=== PATIENT | female | born 2000 | race Caucasian/White ===

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

== ENCOUNTER 2021-08-14 06:21 | Inpatient (IN) ==
[2021-08-14] MEDS ORDERED: OXYTOCIN 30 UNITS/500 ML BAG IV PRN ×4 (08:13→21:19)
--- NOTE | 2021-08-14 08:46 | History & Physical Report ---
Date of Service August 14, 2021 Assessment & Plan (1) HSV (herpes simplex virus) anogenital infection: Plan: 21yo at 40w1d GA. Presents for IOL for term . 1. Fetus: Cat 1 2. Labor: Pitocin 3. GBS negative 4. Vitals WNL 5. HSV no s/s of outbreak (2) Post-term , 40-42 weeks of gestation: Admission and Anticipated Discharge Date Admission Date: August 14, 2021 History of Present Illness Primary Care Provider: NO PCP 21yo at 40w1d GA. Presents for IOL for term . complicated by Hx of HSV on Valtrex. Denies HSV symptoms. OB Labs: Blood Type A Positive 01/01/21 Antibody Screen NEGATIVE 01/01/21 Hemoglobin 10.6 g/dL (12.0-16.0) L 05/27/21 Hematocrit 30.9 % (37-47) L 05/27/21 Mean Corpuscular Volume 89.1 fL (80-100) 01/01/21 F Platelet Count 327 K/uL (130-400) 01/01/21 Rubella IgG Antibody Immune (Immune) 01/01/21 Rapid Plasma Reagin Nonreactive (Nonreactive) 01/01/21 Hepatitis B Surface Antigen Neg (Neg) 01/01/21 Hepatitis C Antibody Neg (Neg) 01/01/21 HIV (1&2) Ab and P24 Ag, 4th Gener Neg (Neg) 01/01/21 Glucose 1 Hour 50 gm Load 111 mg/dl (70-130) 05/27/21 OB Optional Labs: Chlamydia trachomatis RNA NOT DETECTED (NOT DETECTED) 01/01/21 Neisseria gonorrhoeae RNA NOT DETECTED (NOT DETECTED) 01/01/21 Thyroid Stimulating Hormone (TSH) 0.718 uIu/ml (0.510-4.910) 09/18/17 Allergies Allergy/AdvReac Type Severity Reaction Status Date / Time No Known Drug Allergies Allergy Verified 08/13/21 11:25 Home Medications Medication Instructions Recorded Confirmed Type valacyclovir 500 mg tablet 500 mg PO DAILY #30 tab 07/25/20 08/14/21 Rx fluoxetine 20 mg capsule (Prozac) 20 mg PO DAILY 12/25/20 08/14/21 History prenat.vits,felton,abw-vzsv-ldiat 1 tab PO DAILY 12/25/20 08/14/21 History ferrous sulfate 325 mg (65 mg 325 mg PO DAILY 08/14/21 08/14/21 History iron) tablet (iron) Patient History Medical History (Updated 08/14/21 @ 08:44 by Wilfrido Rizzo MD) No acute medical problems Surgical History (Updated 02/24/19 @ 15:35 by Casandra Hoff) Hx of adenoidectomy Family History (Updated 02/24/19 @ 15:37 by Casandra Hoff) Mother Blood clot in vein Father No significant family history Social History (Updated 08/14/21 @ 08:07 by Prema De Luna, LUPIS) Smoking Status: Former smoker Hx Alcohol Use: No Hx Substance Use: Yes (marajauna daily) Preferred Language: Urdu Communication Ability: Effective 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 so changes litter. 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 Feels Safe at Home: Yes Childhood Exposure to Second-Hand Smoke: Yes Assistive Devices: None Physical Exam Gastrointestinal (Abdomen): Percussion/Palpation: abdomen soft; abdomen nontender, no guarding and abdomen not rigid Genitourinary: normal external appearance Manual OB Exam: + cervical dilation 2 cm, + cervical effacement 70% and + station -2 OB Exam Monitor Tracing: + external FHT monitor used, + external uterine monitor used, + category I and + normal FHT variability; no early decelerations present, no late decelerations present and no variable decelerations Results & Data ([facility]) Vital Signs (Past 12 Hours) Vital Signs Pulse BP 08/14/21 08:00 75 119/62 Code Status & VTE Plan VTE Prophylaxis Plan VTE Prophylaxis will be ordered: No Coding Level of Care Code None Diagnoses HSV (herpes simplex virus) anogenital infection A60.9 Post-term , 40-42 weeks of gestation O48.0
[2021-08-14 08:59] LABS: Hematocrit (blood only) 31.9 % (37-47); Hemoglobin 10.6 g/dL (12.0-16.0); Mean Corpuscular Hemoglobin 28.9 pg (25-34); Mean Corpuscular Hgb Conc 33.2 g/dL (32-36); Mean Corpuscular Volume 86.9 fL (80-100); Mean Platelet Volume 10.3 fL (7.4-10.4); Platelet Count 238 K/uL (130-400); RDW Coefficient of Variation 13.8 % (11.5-14.5); RDW Standard Deviation 43.4 fL (36.4-46.3); Red Blood Count 3.67 M/uL (4.2-5.4); White Blood Count 9.64 K/uL (4.8-10.8)
[2021-08-14] MEDS: LACTATED RINGER'S 1,000 ML IV PRN ×2 (09:08→13:23)
[2021-08-14] MEDS ORDERED: fentaNYL citrate 100 MCG/2 ML VIAL ONE (13:11)
[2021-08-14] MEDS ORDERED: ePHEDrine sulfate 50 MG/ML AMP ONE (13:11)
[2021-08-14] MEDS ORDERED: BUPIVACAINE 0.25% 30 ML VIAL ONE (13:12)
[2021-08-14] MEDS ORDERED: fentaNYL 2MCG/ML ROPIVACAINE 1.25MG/ML 100 ML BAG EPI ONE (13:12)
[2021-08-14] MEDS ORDERED: SODIUM CHLORIDE 0.9% INJ 10 ML VIAL ONE (13:12)
[2021-08-14] MEDS ORDERED: fentaNYL 2MCG/ML ROPIVACAINE 1.25MG/ML 100 ML BAG EPI PRN (13:29)
[2021-08-14] MEDS ORDERED: NALOXONE HCL 1 MG in SODIUM CHLORIDE 0.9% 1000ML 1,000 ML IV PRN (13:29)
[2021-08-14] MEDS ORDERED: NALOXONE HCL 0.4 MG/1 ML VIAL/CARP IV PRN (13:29)
[2021-08-14] MEDS ORDERED: NALBUPHINE HCL INJ 10 MG/ML AMP IV PRN (13:29)
[2021-08-14] MEDS ORDERED: ePHEDrine sulfate 50 MG/ML AMP IV PRN (13:29)
[2021-08-14] MEDS ORDERED: diphenhydrAMINE 50 MG/ML VIAL IV PRN (13:29)
--- NOTE | 2021-08-14 13:29 | Anesthesiology Consultation ---
Date of Service August 14, 2021 Assessment & Plan (1) Encounter for pre-operative examination: Chart Review Chart Review: Acceptable Risk for Surgery and Patient NOT seen in Pre Admission Testing Consults Requested none History Height/Weight Height: 5 ft 2 in Weight: 84.085 kg Allergies Allergy/AdvReac Type Severity Reaction Status Date / Time No Known Drug Allergies Allergy Verified 08/13/21 11:25 Medications Home Medications Medication Instructions Recorded Confirmed Last Taken valacyclovir 500 mg tablet 500 mg PO DAILY #30 tab 07/25/20 08/14/21 08/13/21 fluoxetine 20 mg capsule (Prozac) 20 mg PO DAILY 12/25/20 08/14/21 08/14/21 08:00 prenat.vits,felton,yaf-vhrm-ybxoz 1 tab PO DAILY 12/25/20 08/14/21 08/13/21 ferrous sulfate 325 mg (65 mg 325 mg PO DAILY 08/14/21 08/14/21 08/12/21 iron) tablet (iron) Active Medications Generic Name Dose Route Start Last Admin Trade Name Pollo PRN Reason Stop Dose Admin Lactated Ringer's 1,000 mls @ 125 mls/hr 08/14/21 08:13 08/14/21 13:23 Lr IV 08/16/21 08:12 999 mls/hr .Q8H PRN Administration L&D Protocol Protocol Oxytocin 30 units in 500 mls @ 8 mls/hr 08/14/21 08:37 08/14/21 10:40 Pitocin IV 08/16/21 08:36 0.48 units/hr .Q24H PRN 8 mls/hr Labor Induction/Augmentation Titration Protocol 0.48 UNITS/HR Past Medical History Medical History No acute medical problems Past Family History Family History Mother Blood clot in vein Father No significant family history Past Surgical History Surgical History Hx of adenoidectomy Social History Smoking Status: Former smoker tobacco type: e-cigarettes Hx Alcohol Use: No Hx Substance Use: Yes (marajauna daily) substance use type: marijuana Physical Exam Vital Signs Last Vital Signs Temp 98.2 F 08/14/21 11:17 Pulse 57 L 08/14/21 12:05 Resp 18 08/14/21 12:40 BP 123/76 08/14/21 12:05 Testing Laboratory Results 08/14/21 08:22
--- NOTE | 2021-08-14 15:54 | Labor Progress Brief Note ---
Date of Service August 14, 2021 Subjective Reason For Note: Routine Evaluation Assessment & Plan (1) Post-term , 40-42 weeks of gestation: Plan: 21yo at 40w1d [place]. Presents for IOL for term . Progressing well 1. Fetus: Cat 1 2. Labor: Pitocin, s/p SROM. 3. GBS negative 4. Vitals WNL Admission and Anticipated Discharge Date Admission Date: August 14, 2021 Physical Exam Genitourinary: Manual OB Exam: + cervical dilation 4 cm, + cervical effacement 80%, + station -1 and + amniotic fluid bloody OB Exam Monitor Tracing: + external FHT monitor used, + external uterine monitor used, + category I and + normal FHT variability; no early decelerations present, no late decelerations present and no variable decelerations Results & Data ([facility]) Vital Signs (Past 12 Hours) Vital Signs Temp Pulse Resp BP Pulse Ox 08/14/21 15:44 55 L 100 08/14/21 15:40 50 L 125/72 08/14/21 15:39 52 L 100 08/14/21 15:34 63 98 08/14/21 15:29 56 L 99 08/14/21 15:24 62 115/66 99 08/14/21 15:19 58 L 99 08/14/21 15:14 54 L 98 08/14/21 15:09 56 L 108/60 98 08/14/21 15:04 53 L 100 08/14/21 14:59 52 L 100 08/14/21 14:55 61 18 129/60 08/14/21 14:54 61 99 08/14/21 14:49 55 L 98 08/14/21 14:44 55 L 98 08/14/21 14:39 53 L 99 08/14/21 14:34 56 L 96 08/14/21 14:29 56 L 98 08/14/21 14:24 53 L 113/59 L 98 08/14/21 14:21 52 L 117/55 L 08/14/21 14:19 55 L 99 08/14/21 14:18 62 18 122/73 08/14/21 14:15 36.5 C 54 L 106/58 L 08/14/21 14:14 56 L 99 08/14/21 14:12 56 L 111/57 L 08/14/21 14:09 55 L 112/55 L 99 08/14/21 14:06 59 L 122/51 L 08/14/21 14:04 61 98 08/14/21 14:03 55 L 18 107/59 L 08/14/21 14:00 54 L 18 105/59 L 08/14/21 13:59 57 L 98 08/14/21 13:57 55 L 18 102/55 L 08/14/21 13:54 56 L 106/57 L 100 08/14/21 13:51 55 L 18 116/62 08/14/21 13:49 58 L 100 08/14/21 13:48 63 18 129/71 08/14/21 13:44 60 100 08/14/21 13:40 18 08/14/21 13:39 77 98 08/14/21 13:10 18 08/14/21 12:40 18 08/14/21 12:10 18 08/14/21 12:05 57 L 123/76 08/14/21 11:40 18 08/14/21 11:17 36.8 C 59 L 18 117/73 08/14/21 10:40 18 08/14/21 10:13 57 L 127/82 08/14/21 10:10 18 08/14/21 09:40 18 08/14/21 09:14 71 18 116/58 L 08/14/21 09:10 18 08/14/21 09:09 18 08/14/21 08:08 36.6 C 18 08/14/21 08:00 75 119/62 Coding Level of Care Code None Diagnoses Post-term , 40-42 weeks of gestation O48.0
--- NOTE | 2021-08-14 15:55 | Labor Progress Brief Note ---
Date of Service August 14, 2021 Subjective presented for evaluation due to questionable decels with inconsistent monitoring due to the heart rate monitor losing connection. questionable variable versus early Deceleration noted. a scalp electrode placed there was noted be recurrent would appear to be variable decelerations. resuscitation measures were initiated and ultimately the oxytocin was discontinued with gradual improvement of heart rate noted. Assessment & Plan (1) Post-term , 40-42 weeks of gestation: Plan: 21yo at 40w1d [place]. Presents for IOL for term . Progressing well 1. Fetus: Cat 2 with gradual improvement to category 1 following discontinuation of Pitocin 2. Labor: d/c Pitocin, s/p SROM. 3. GBS negative 4. Vitals WNL Admission and Anticipated Discharge Date Admission Date: August 14, 2021 Physical Exam Genitourinary: Manual OB Exam: + cervical dilation 6 cm, + cervical effacement 80% and + station -1 OB Exam Monitor Tracing: + external FHT monitor used, + external uterine monitor used, + category II ( see above), + normal FHT variability, + early decelerations present and + variable decelerations Results & Data ([facility]) Vital Signs (Past 12 Hours) Vital Signs Temp Pulse Resp BP Pulse Ox 08/14/21 15:49 53 L 97 08/14/21 15:44 55 L 100 08/14/21 15:40 50 L 125/72 08/14/21 15:39 52 L 100 08/14/21 15:34 63 98 08/14/21 15:29 56 L 99 08/14/21 15:24 62 115/66 99 08/14/21 15:19 58 L 99 08/14/21 15:14 54 L 98 08/14/21 15:09 56 L 108/60 98 08/14/21 15:04 53 L 100 08/14/21 14:59 52 L 100 08/14/21 14:55 61 18 129/60 08/14/21 14:54 61 99 08/14/21 14:49 55 L 98 08/14/21 14:44 55 L 98 08/14/21 14:39 53 L 99 08/14/21 14:34 56 L 96 08/14/21 14:29 56 L 98 08/14/21 14:24 53 L 113/59 L 98 08/14/21 14:21 52 L 117/55 L 08/14/21 14:19 55 L 99 08/14/21 14:18 62 18 122/73 08/14/21 14:15 36.5 C 54 L 106/58 L 08/14/21 14:14 56 L 99 08/14/21 14:12 56 L 111/57 L 08/14/21 14:09 55 L 112/55 L 99 08/14/21 14:06 59 L 122/51 L 08/14/21 14:04 61 98 08/14/21 14:03 55 L 18 107/59 L 08/14/21 14:00 54 L 18 105/59 L 08/14/21 13:59 57 L 98 08/14/21 13:57 55 L 18 102/55 L 08/14/21 13:54 56 L 106/57 L 100 08/14/21 13:51 55 L 18 116/62 08/14/21 13:49 58 L 100 08/14/21 13:48 63 18 129/71 08/14/21 13:44 60 100 08/14/21 13:40 18 08/14/21 13:39 77 98 08/14/21 13:10 18 08/14/21 12:40 18 08/14/21 12:10 18 08/14/21 12:05 57 L 123/76 08/14/21 11:40 18 08/14/21 11:17 36.8 C 59 L 18 117/73 08/14/21 10:40 18 08/14/21 10:13 57 L 127/82 08/14/21 10:10 18 08/14/21 09:40 18 08/14/21 09:14 71 18 116/58 L 08/14/21 09:10 18 08/14/21 09:09 18 08/14/21 08:08 36.6 C 18 08/14/21 08:00 75 119/62 Coding Level of Care Code None Diagnoses Post-term , 40-42 weeks of gestation O48.0
[2021-08-14] MEDS ORDERED: ERYTHROMYCIN OP OINT 1 GM PKT ONE (20:45)
[2021-08-14] MEDS ORDERED: bisacodyL 10 MG SUPP PR PRN (21:19)
[2021-08-14] MEDS ORDERED: BENZOCAINE 20% AER SPR 82.5 GM CAN EXT PRN (21:19)
[2021-08-14] MEDS ORDERED: ACETAMINOPHEN 325 MG TAB PO PRN (21:19)
[2021-08-14] MEDS ORDERED: DIPHTHERIA/TETANUS/PERTUSSIS 0.5 ML SYR/VIAL IM ONE (21:19)
[2021-08-14] MEDS ORDERED: HYDROCORTISONE ACETATE 25 MG SUPP PR PRN (21:19)
[2021-08-14] MEDS ORDERED: ONDANSETRON INJ 2 MG/ML 2 ML VIAL IV PRN (21:27)
--- NOTE | 2021-08-14 21:58 | Anesthesia Procedure Note ---
Date of Service August 14, 2021 Anesthesia Post Epidural Note Vital Signs Vital Signs: Temp Pulse Resp BP Pulse Ox 97.9 F 92 H 18 133/73 87 L 08/14/21 19:05 08/14/21 21:47 08/14/21 21:45 08/14/21 21:47 08/14/21 21:01 Pain Intensity Bilateral Abdomen: Pain Intensity: 0 Notes Mental Status: alert / awake / arousable and participated in evaluation Nausea / Vomiting: adequately controlled Pain: adequately controlled Airway Patency, RR, SpO2: stable & adequate BP & HR: stable & adequate Hydration State: stable & adequate Neuraxial Anesthesia: was administered and sensory block is resolving Anesthetic Complications: no major complications apparent and Pt Satisfied with anesthetic care Epidural: Removed without complications and With tip intact
--- NOTE | 2021-08-14 22:27 | Delivery Summary ---
PROCEDURE: Normal spontaneous vaginal delivery with left sidewall vaginal laceration repair. SURGEON: Wilfrido Rizzo MD PREOPERATIVE DIAGNOSES: 1. Single intrauterine at 40 weeks 0 days gestational age. 2. History of herpes simplex virus, on acyclovir. POSTOPERATIVE DIAGNOSES: 1. Single intrauterine at 40 weeks 0 days gestational age. 2. History of herpes simplex virus, on acyclovir. 3. Status post procedure. ESTIMATED BLOOD LOSS: 300 mL. DRAINS: None. FLUIDS: Continuous lactated Ringer. URINE OUTPUT: Not measured. COMPLICATIONS: None. FINDINGS: Viable male infant with weight pending, Apgars of 8 and 9 at one and five minutes respecti velthony. INDICATIONS: Augustine is a 21-year-old G1, P0, admitted at 40 weeks 1 day gestational age for inducti on of labor for late term . The patient was initially started on oxytocin per regular gonzález col. She received an epidural for anesthesia and underwent spontaneous rupture of membranes. The pa tient progressed in labor and was noted to have recurrent variable decels as well as a prolonged dece leration resulting in Pitocin being turned off. The Pitocin was never restarted, but the patient con tinued in labor, spontaneous, without further augmentation to become complete-complete, +2 station, p ushed for approximately 1 hour to achieve delivery. DESCRIPTION OF PROCEDURE: Head of the delivered in direct occiput anterior position and harmony ined at that position after restitution. There was noted to be a nuchal cord, which was easily reduc ed. Body and shoulders quickly followed. was noted to have good tone, but without spontaneo us cry and a 1-minute delayed cord clamping was initiated with stimulation. After 1 minute, no spontaneous cry was noted, although continued good tone was noted. The cord was double clampe d and approximately 15 seconds later was taken over to the waiting nursery staff for further evaluation and 1-minute Apgars scores of 8 were noted. The attention was then turned to delivery of the placenta, which was delivered intact, 3-vessel cord, gentle cord traction. On inspection of the perineum, vagina, and cervix, there was noted to be a left sidewall laceration with minimal depth carolina suring approximately 2 cm. This was repaired with 3-0 Vicryl in a continuous running locked stitch. Needle, sponge, and instrument counts were correct at the completion of the case. Both mother and n rosalio were stable in the immediate post-delivery period. Job ID: [id number]
[2021-08-15] MEDS: IBUPROFEN 600 MG TAB PO PRN ×3 (00:21→19:50)
[2021-08-15 06:15] LABS: Hematocrit (blood only) 30.9 % (37-47); Hemoglobin 10.4 g/dL (12.0-16.0)
--- NOTE | 2021-08-15 08:41 | Obstetrical Progress Note ---
Date of Service August 15, 2021 Assessment & Plan (1) Encounter for care and examination after delivery: Day 1 s/p . Doing well. Routine care Subjective Ambulation: ambulating normally Voiding: no voiding problems Passing Gas:: Yes Diet Tolerance:: regular diet Lochia:: Moderate Feeding Type:: breast feeding Physical Exam Genitourinary OB Exam Abdomen: + fundal height Fundus: + firm and + relation to umbilicus (Below); not tender or not boggy Results & Data ([facility]) Vital Signs (Past 12 Hours) Vital Signs Temp Pulse Pulse Resp BP BP Pulse Ox 08/15/21 08:00 36.9 C 70 18 134/79 98 08/15/21 03:10 36.7 C 64 18 127/64 98 08/14/21 23:35 36.8 C 61 18 120/73 99 08/14/21 23:01 65 123/70 08/14/21 23:00 37.1 C 18 08/14/21 22:46 68 121/63 08/14/21 22:32 62 129/66 08/14/21 22:16 63 119/56 L 08/14/21 22:01 52 L 112/59 L 08/14/21 21:47 92 H 133/73 08/14/21 21:45 18 08/14/21 21:31 77 124/79 08/14/21 21:30 18 08/14/21 21:16 75 128/82 08/14/21 21:15 18 08/14/21 21:03 77 136/86 08/14/21 21:01 82 87 L 08/14/21 21:00 18 08/14/21 20:59 72 97 08/14/21 20:54 68 131/64 97 08/14/21 20:49 63 97 08/14/21 20:44 72 96 08/14/21 20:43 95 H 84 L
[2021-08-15] MEDS: PRENATAL VITAMIN 1 TAB PO SCH (09:28)
[2021-08-15] MEDS: FERROUS SULFATE 325 MG TAB PO SCH (09:28)
[2021-08-15] MEDS: DOCUSATE SODIUM 100 MG CAP PO SCH ×2 (09:28→19:50)
[2021-08-15] MEDS: FLUoxetine HCL 20 MG CAP PO SCH (11:41)
[2021-08-15] MEDS ORDERED: bisacodyL 5 MG TABEC PO SCH (20:00)
--- NOTE | 2021-08-16 07:13 | Obstetrical Progress Note ---
Date of Service August 16, 2021 Assessment & Plan (1) Encounter for care and examination after delivery: Plan: Patient is a 21-year-old now G1, P1 female who delivered via normal spontaneous vaginal delivery, day 2. -Continue routine care, discharge today, discharge instructions reviewed -A+, antibody negative, rubella immune, GBS negative. -Encourage breast-feeding and ambulation -Pain controlled today -6-week follow-up with Dr. Rizzo Admission and Anticipated Discharge Date Admission Date: August 14, 2021 Supervising Physician Co-Signing Physician Notes Resident Physician Supervision Note: I was present with Dr. Moer during the history and exam. I discussed the case with the resident and agree with the findings and plan as documented in the note. Any exceptions or clarifications are listed here: PP2 s/p , doing well. Stable for d/c home today Documented By: Giulia Wheatley MD Subjective Patient is a 21-year-old now G1, P1 female who delivered via normal spontaneous vaginal delivery, day 2. Patient is pumping upon arrival to the room. Patient overall doing well. Patient ambulating voiding without difficulty. Patient able to eat and drink without nausea or vomiting. Passing gas. Breast-feeding well but patient concerned her baby is losing weight. Otherwise pain is controlled for her but does note some cramping especially with breast-feeding. Otherwise no other complaints at this time. Patient denies fever, chills, chest pain, shortness of breath, UTI symptoms, or headache. Patient would like to go home today if able. Review of Systems Review of Systems: All systems reviewed & are unremarkable except as noted in HPI & below Physical Exam Constitutional: WD/WN, vitals as above Eyes: + anicteric sclerae Neck: normal visual inspection Respiratory: normal respiratory effort, lungs clear to auscultation Cardiovascular: RRR, no murmur, no edema Gastrointestinal (Abdomen): normal bowel sounds, soft, nontender, no hepatosplenomegaly Musculoskeletal: Head/Neck/Chest: normocephalic and head atraumatic Skin: no rashes, warm and dry Neurologic: moves all extremities Psychiatric: A+Ox3, euthymic affect Genitourinary: Uterine fundus palpated 2 cm above the umbilicus and displaced laterally to the right, firm. Results & Data ([facility]) Vital Signs (Past 12 Hours) Vital Signs Temp Pulse Resp BP Pulse Ox 08/15/21 23:20 36.4 C L 64 16 114/68 99 08/15/21 19:55 36.6 C 64 18 117/76
[2021-08-16] MEDS: PRENATAL VITAMIN 1 TAB PO SCH (09:25)
[2021-08-16] MEDS: DOCUSATE SODIUM 100 MG CAP PO SCH (09:25)
[2021-08-16] MEDS: FERROUS SULFATE 325 MG TAB PO SCH (09:25)
[2021-08-16] MEDS: FLUoxetine HCL 20 MG CAP PO SCH (09:26)
== END 2021-08-16 13:20 | disposition home or self-care (01) | DRG 768 ==
LOC: 4S1 07:47 → 4E2 23:48